=== PATIENT | female | born 2000 | race Caucasian/White ===

== ENCOUNTER → 2024-10-20 | Outpatient (CLI) | payer OTHER ==
[~2024-10-20] MED LIST: PRENATAL TABLE1 EAC2 PO
== END | disposition home or self-care (01) ==
LOC: LAB 19:24 → LAB SHORT 19:24
DX: Z33.1 Pregnant state, incidental (principal); Z3A.36 36 weeks gestation of pregnancy
CPT/HCPCS: 87081; 87150

== ENCOUNTER 2024-11-08 18:29 | Inpatient (IN) | payer OTHER ==
[~2024-11-08] VITALS: Ht 154.9 cm; Wt 132.3 kg
[2024-11-08 14:54] LABS: BASOPHILS ABSOLUTE AUTO 0.04 K/mm3 (0.00-0.23); BASOPHILS PERCENT AUTO 1 % (0-2); EOSINOPHILS ABSOLUTE AUTO 0.17 K/mm3 (0.00-0.68); EOSINOPHILS PERCENT AUTO 2 % (0-6); Hematocrit 27.3 % (33.0-51.0); Hemoglobin 8.6 g/dL (11.5-16.0); IMMATURE GRAN ABSOLUTE AUTO 0.08 K/mm3 (0.00-0.10); IMMATURE GRAN PERCENT AUTO 1 % (0-1); LYMPHOCYTES ABSOLUTE AUTO 1.63 K/mm3 (0.84-5.20); LYMPHOCYTES PERCENT AUTO 19 % (21-46); MONOCYTES ABSOLUTE AUTO 0.48 K/mm3 (0.16-1.47); MONOCYTES PERCENT AUTO 6 % (4-13); Mean Corpuscular HGB 24.2 pg (26.0-34.0); Mean Corpuscular HGB Conc 31.5 g/dL (31.5-36.5); Mean Corpuscular Volume 77 fL (80-100); NEUTROPHILS ABSOLUTE AUTO 6.23 K/mm3 (1.96-9.15); NEUTROPHILS PERCENT AUTO 72 % (41-73); NRBC ABSOLUTE 0.02 K/mm3 (0.00-0.02); NRBC Auto 0.2 /100 WBC (0.0-0.2); Platelet Count 200 K/mm3 (150-400); RDW Coefficient Variation 17.3 % (11.7-14.2); RDW Standard Deviation 48.1 fL (35.1-46.3); Red Blood Cell Count 3.55 M/mm3 (3.80-5.20); White Blood Cell Count 8.63 K/mm3 (4.00-11.30)
[2024-11-09] VITALS (21 sets, daily range): BP systolic 91–118; BP diastolic 55–81
[2024-11-09] MEDS ORDERED: Metoclopramide HCl 5MG / ML 2ML Vial IV SCH (13:15)
[2024-11-09] MEDS ORDERED: Citric Acid/Sodium Citrate 30 ML BTL PO SCH (13:15)
[2024-11-09] MEDS ORDERED: CeFAZolin Sodium 3,000 MG in NS 100 ML IV SCH (13:15)
[2024-11-09] MEDS ORDERED: Lactated Ringer's 1,000 ML IV SCH ×2 (13:15→17:10)
[2024-11-09] MEDS ORDERED: Tranexamic Acid 100 ML IV ONE (15:30)
[2024-11-09] MEDS ORDERED: Lidocaine HCl 2% 10 ML SDA ONE (15:56)
[2024-11-09] MEDS ORDERED: Phenylephrine HCl 100 MCG/ML-NS 10MLSYR (1MG/10ML) ONE ×2 (15:56→16:28)
[2024-11-09] MEDS ORDERED: Ondansetron HCl 2 MG / ML 2ML Vial ONE (16:28)
[2024-11-09] MEDS ORDERED: Oxytocin 10 Unit / ML Vial ONE ×2 (16:28→16:38)
--- NOTE | 2024-11-09 16:28 | NUR ---
11/09/24 1628 PHIL WRIGHT VIABLE MALE BORN AT 1613. [id number]. APGARS 9/8.
[2024-11-09] MEDS ORDERED: HYDROmorphone HCl/Pf 1MG SYR IV PRN ×2 (16:55)
[2024-11-09] MEDS ORDERED: Atropine Sulfate 0.1 MG/ML 10ML SYR IV PRN (16:55)
[2024-11-09] MEDS ORDERED: Ondansetron HCl 2 MG / ML 2ML Vial IV PRN ×2 (16:55→17:00)
[2024-11-09] MEDS ORDERED: FentaNYL Citrate 50 MCG/ML 2 ML Injection IV PRN ×2 (16:55→17:00)
[2024-11-09] MEDS ORDERED: Albuterol 2.5 MG/3 ML VIAL INH PRN (16:55)
[2024-11-09] MEDS ORDERED: Labetalol HCL 5 MG/ML 4ML Injection (Single Dose) IV PRN (16:55)
[2024-11-09] MEDS ORDERED: Lanolin Cream TOP PRN (17:00)
[2024-11-09] MEDS ORDERED: Morphine Sulfate 4 MG/1 ML Injection IV PRN (17:00)
[2024-11-09] MEDS ORDERED: Simethicone 80 MG Chew PO PRN (17:00)
[2024-11-09] MEDS ORDERED: ePHEDrine Sulfate 50 MG/ML 1ML Injection IV PRN (17:00)
[2024-11-09] MEDS ORDERED: OxyCODONE HCL 5 MG TAB PO PRN (17:00)
[2024-11-09] MEDS ORDERED: Rho(D) Immune Globulin 300 MCG / SYR IM SCH (17:05)
[2024-11-09] MEDS ORDERED: Promethazine HCl 25 MG Tab PO PRN (17:05)
[2024-11-09] MEDS ORDERED: Misoprostol 200 MCG Tab PR PRN (17:05)
[2024-11-09] MEDS ORDERED: Acetaminophen 500 MG Tab PO PRN (17:05)
[2024-11-09] MEDS ORDERED: OXYTOCIN/RINGER'S LACTATE 500 ML IV SCH (17:05)
[2024-11-09] MEDS ORDERED: Magnesium Hydroxide Conc 10 ML UDC PO PRN (17:10)
[2024-11-09] MEDS ORDERED: Metoclopramide HCl 10 MG Tab PO PRN (17:10)
[2024-11-09] MEDS ORDERED: Carboprost Tromethamine 250 MCG/ML 1ML Amp IM PRN (17:10)
[2024-11-09] MEDS ORDERED: Methylergonovine Maleate 0.2MG / ML 1ML Amp IM PRN (17:10)
[2024-11-09] MEDS ORDERED: Measles/Mumps/Rubella Vaccine 0.5 ML Vial SC SCH (17:15)
[2024-11-09] MEDS ORDERED: Ketorolac Tromethamine 30mg Vial IV SCH (18:00)
[2024-11-09] MEDS ORDERED: Ketorolac Tromethamine 30mg Vial IV PRN (20:00)
[2024-11-10] VITALS (7 sets, daily range): BP systolic 101–139; BP diastolic 55–71
[2024-11-10] MEDS ORDERED: Ibuprofen 400 MG Tab PO SCH
[2024-11-10 06:03] LABS: BASOPHILS ABSOLUTE AUTO 0.03 K/mm3 (0.00-0.23); BASOPHILS PERCENT AUTO 0 % (0-2); EOSINOPHILS ABSOLUTE AUTO 0.12 K/mm3 (0.00-0.68); EOSINOPHILS PERCENT AUTO 1 % (0-6); Hematocrit 25.2 % (33.0-51.0); IMMATURE GRAN ABSOLUTE AUTO 0.07 K/mm3 (0.00-0.10); IMMATURE GRAN PERCENT AUTO 1 % (0-1); LYMPHOCYTES ABSOLUTE AUTO 1.71 K/mm3 (0.84-5.20); LYMPHOCYTES PERCENT AUTO 17 % (21-46); MONOCYTES ABSOLUTE AUTO 0.55 K/mm3 (0.16-1.47); MONOCYTES PERCENT AUTO 5 % (4-13); Mean Corpuscular HGB Conc 31.7 g/dL (31.5-36.5); Mean Corpuscular Volume 79 fL (80-100); Mean Platelet Volume 11.6 fL (9.1-12.4); NEUTROPHILS ABSOLUTE AUTO 7.81 K/mm3 (1.96-9.15); NEUTROPHILS PERCENT AUTO 76 % (41-73); Platelet Count 177 K/mm3 (150-400); RDW Coefficient Variation 17.7 % (11.7-14.2); RDW Standard Deviation 49.1 fL (35.1-46.3); White Blood Cell Count 10.29 K/mm3 (4.00-11.30)
[2024-11-10] MEDS ORDERED: Polyethylene Glycol 3350 17 gm PO SCH (09:00)
[2024-11-10] MEDS ORDERED: Prenatal Vit/FE Fumarate/FA 1 Tab PO SCH (09:00)
[2024-11-10] MEDS ORDERED: Sod Ferric Gluc Complx/Sucrose 125 MG in NS 100 ML IV SCH (14:00)
[2024-11-10] MEDS ORDERED: Ibuprofen 400 MG Tab PO PRN (20:25)
[2024-11-11 04:01] VITALS: BP 115/59
[2024-11-11 07:30] VITALS: BP 119/70
[2024-11-11 11:59] VITALS: BP 117/62
--- NOTE | 2024-11-13 15:35 | NUR ---
PT HAD PPFU TODAY 11/13/24 @1500. PT STAYED HOME AND HAD AND OTHER SUPPORT PERSON COME TO APPT AND SHE JOINED IN VIA VIDEO CHAT. PT STATES SHE HAS HER POST APPT WITH DR PETERSON MADE AND WILL GO TO THAT APPT. PT STATES SHE IS TAKING PERCOCET AND IBUPROFEN FOR PAIN. DENIES HEADACHES, BLURRED VISION AND DIZZINESS. STATES HER FEET ARE A LITTLE SWOLLEN, ENCOURAGED FLUIDS. STATES NO BOWEL MOVEMENT YET, BUT IS PASSING GAS. LOCHIA IS DECREASING. HAS CS DRESSING IN PLACE WITH PLANS TO REMOVE ON WEDNESDAY PER DR PETERSON ORDER. IS ABLE TO VOID WITHOUT DIFFICULTY.
== END 2024-11-11 14:20 | disposition home or self-care (01) | DRG 785 ==
LOC: BC 11-09 12:57
PROVIDERS: Obstetrics & Gynecology; ADMIT Obstetrics & Gynecology
PROC: 10D00Z1 Extraction of Products of Conception, Low, Open Approach (ICD-10-PCS; principal; 2024-11-09 15:00)
PROC: 0UT70ZZ Resection of Bilateral Fallopian Tubes, Open Approach (ICD-10-PCS; principal; 2024-11-09 15:00)
DX: O64.1XX0 Obstructed labor due to breech presentation, not applicable or unspecified (principal); Z3A.39 39 weeks gestation of pregnancy; Z37.0 Single live birth; O99.214 Obesity complicating childbirth; Z30.2 Encounter for sterilization; O90.81 Anemia of the puerperium; D50.9 Iron deficiency anemia, unspecified
CPT/HCPCS: 36415; 36430; 85025; 86850; 86900; 86901; 86923; 88302; A9270; J0690; J1885; J2003; J2371; J2405; J2590; J2916; J7120; P9016